=== PATIENT | female | born 1950 | race Caucasian/White ===

== ENCOUNTER 2019-12-16 17:50 | Emergency (ER) | payer MEDICARE, OTHER, SELFPAY ==
[2019-12-16 17:58] VITALS: BP 125/65; PULSE 70; RESP 16; TEMP 36.2; O2SAT 98; BMI 35.5
[2019-12-16 18:32] LABS: Add Manual Diff / Slide Review NO; Basophils Absolute Auto 100 /uL (0-100); Basophils Percent Auto 0.9 % (0-2); Eosinophils Absolute Auto 100 /uL (0-450); Eosinophils Percent Auto 1.2 % (2-4); Hematocrit 38.4 % (36-46); Hemoglobin 12.9 g/dL (12.0-16.0); Lymphocytes Absolute Auto 2800 /uL (1100-4500); Lymphocytes Percent Auto 33.6 % (25-40); Mean Corpuscular HGB Conc 33.7 % (30-36); Mean Corpuscular Volume 92.1 fL (80-100); Monocytes Absolute Auto 600 /uL (0-900); Monocytes Percent Auto 6.7 % (3-14); Neutrophils Absolute Auto 4700 /uL (1500-7000); Neutrophils Percent Auto 57.6 % (50-75); Platelet Count 235 X10^3/uL (150-400); Red Blood Cell Count 4.17 X10^6/uL (4.0-5.2); Red Cell Distribution Width 13.6 % (11.6-14.8); White Blood Cell Count 8.2 X10^3/uL (4.5-11.0)
[2019-12-16 18:37] LABS: INR 1.1 (0.9-1.3); Prothrombin Time 12.1 SECONDS (10.1-12.7)
[2019-12-16 18:40] LABS: PTT Partial Thromboplastin Tim 32 SECONDS (26.4-36.2)
[2019-12-16 18:42] LABS: D Dimer 267 ng/mL (<230)
[2019-12-16 18:44] LABS: BUN Creatinine Ratio 25.7 (6-22); Blood Urea Nitrogen 18 mg/dL (7-17); Calcium 9.3 mg/dL (8.4-10.2); Carbon Dioxide 30 mmol/L (22-32); Chloride 105 mmol/L (98-107); Estimated Glomerular Filt Rate > 60.0 mL/min (>60); Glucose 101 mg/dL (80-110); HEMOLYSIS < 15 (0-50); Potassium 3.6 mmol/L (3.4-5.1); Sodium 140 mmol/L (137-145)
--- NOTE | 2019-12-16 18:50 | ED.EXTPRO ---
HPI - Extremity Problem General Chief complaint: Extremity Problem,Nontraumatic Stated complaint: concerned of possible blood clot in legs Time Seen by Provider: 12/16/19 18:48 Source: patient Mode of arrival: Wheelchair Limitations: no limitations History of Present Illness HPI Narrative: Patient is a 69-year-old female here for evaluation of concerns of a DVT in her right lower extremity. She recently had right knee surgery for a meniscus injury. She stated that since her surgery she has had increasing pain and swelling around her right knee. She also states that the redness has been moving down her knee. She has had a DVT in the past. Has had a PE in the past. Is not currently on anticoagulation however she did have Xarelto left over from her prior issues. She was started on this today by an outside provider. [place] were unable to do this. She was sent to the emergency department to have an ultrasound for potential for DVT. Related Data Home Medications Medication Instructions Recorded Confirmed [ADVIL] #0 03/29/10 Allergies Allergy/AdvReac Type Severity Reaction Status Date / Time Sulfa (Sulfonamide Allergy Verified 12/16/19 17:58 Antibiotics) Review of Systems Constitutional Constitutional: Denies fever(s) and Denies headache(s) ENT Ears, Nose, Mouth, and Throat: Denies headache(s) and Denies disequilibrium Cardiovascular Cardiovascular: Denies chest pain and Denies dyspnea Respiratory Respiratory: Denies dyspnea Gastrointestinal Gastrointestinal: Denies abdominal pain, Denies nausea and Denies vomiting Genitourinary Genitourinary: Denies dysuria Musculoskeletal Comments: Right knee pain Integumentary/Breasts Comments: Swelling and ecchymosis around the right knee Neurologic Neurologic: Denies headache(s) and Denies disequilibrium Hematologic/Lymphatic Comments: Has had a DVT in the past Patient History Medical History DVT (deep venous thrombosis) (Acute) Social History Smoking Status: Unknown if ever smoked Smoking Status: Unknown if ever smoked alcohol intake frequency: holidays/special occasions only Substance Use Type: marijuana Exam Initial Vital Signs Initial Vital Signs: Vital Signs Temperature 97.2 F L 12/16/19 17:58 Pulse Rate 70 12/16/19 17:58 Respiratory Rate 16 12/16/19 17:58 Blood Pressure 125/65 12/16/19 17:58 Pulse Oximetry 98 12/16/19 17:58 Const General: cooperative and comfortable Limitations: mental status not altered Resp Effort & Inspection: normal respiratory effort Cardio Rate: regular rate Skin Other: Surgical scars right knee consistent with stated history, ecchymosis around right knee consistent with stated history. Neuro General: alert and awake Cognition: normal cognition Speech: speech normal Extrem Other: Swelling around the right knee consistent with stated history Psych Appearance: grossly normal and well kempt Scores GCS Elsa coma scale eye opening: Spontaneous [place] coma scale verbal response: Orientated Elsa coma scale motor response: Obey commands [place] coma scale total score: 15 Wells' Criteria for DVT Active Cancer (Treatment within 6 months): No Bedridden recently >3 days or major surgery within 4 weeks: Yes Calf Swelling >3cm compared to other leg: No Collateral (nonvericose) superficial veins present: No Entire leg swollen: No Localized tenderness along the deep vein system: No Pitting edema, confined to symtomatic leg: No Paralysis, paresis, or recent plaster immobilization of ext: No Previously documented DVT: Yes Alternative dx to DVT as likely or more likely: Yes Wells' criteria for DVT: 0 Course Orders Ordered: ED Orders 12/16/19 18:19 Basic Metabolic Panel Stat Complete Blood Count AUTO DIFF Stat D Dimer Stat Partial Thromboplastin Time Stat Prothrombin Time INR Stat 12/16/19 19:00 US periph venous low extrem rt Stat Vital Signs Vital signs: Vital Signs - 8 hr 12/16/19 17:58 12/16/19 19:30 12/16/19 19:54 Temperature 97.2 F L Pulse Rate 70 53 L Pulse Rate [Right Dorsalis Pedis] 60 Respiratory Rate 16 Blood Pressure 125/65 Blood Pressure [Left Arm] 122/62 Pulse Oximetry 98 97 MDM - Extremity (Nontraumatic) Lab Data Result diagrams: 12/16/19 18:19 12/16/19 18:19 Labs: Lab Results 12/16/19 12/16/19 12/16/19 Range/Units 18:19 18:19 18:19 WBC 8.2 (4.5-11.0) X10^3/uL RBC 4.17 (4.0-5.2) X10^6/uL Hgb 12.9 (12.0-16.0) g/dL Hct 38.4 (36-46) % MCV 92.1 (80-100) fL MCH 31.0 (26-34) PG MCHC 33.7 (30-36) % RDW 13.6 (11.6-14.8) % Plt Count 235 (150-400) X10^3/uL Neut % (Auto) 57.6 (50-75) % Lymph % (Auto) 33.6 (25-40) % [place] % (Auto) 6.7 (3-14) % Eos % (Auto) 1.2 L (2-4) % Baso % (Auto) 0.9 (0-2) % Neut # (Auto) 4700 (4445-7086) /uL Lymph # (Auto) 2800 (2033-6323) /uL [place] # (Auto) 600 (0-900) /uL Eos # (Auto) 100 (0-450) /uL Baso # (Auto) 100 (0-100) /uL PT 12.1 (10.1-12.7) SECONDS INR 1.1 (0.9-1.3) APTT 32 (26.4-36.2) SECONDS D-Dimer 267 H (<230) ng/mL Sodium 140 (137-145) mmol/L Potassium 3.6 (3.4-5.1) mmol/L Chloride 105 (98-107) mmol/L Carbon Dioxide 30 (22-32) mmol/L BUN 18 H (7-17) mg/dL Creatinine 0.70 (0.52-1.04) mg/dL Estimated GFR > 60.0 (>60) mL/min BUN/Creatinine Ratio 25.7 H (6-22) Glucose 101 (80-110) mg/dL Calcium 9.3 (8.4-10.2) mg/dL Imaging Data US - DVT: Radiologist's Impression: [address] [address] Ultrasound Report Signed Patient: Sunshine Khan#: [id number] : 2Acct:[id number] Age/Sex: 69 / FDate of Service: 12/16/19 Loc: ED Accession Number: [id number] Procedure: US periph venous low extrem rt Ordering Provider: Gagandeep Alcantara D.O. PROCEDURE: US PERIP VENOUS LOW EXTREM RT INDICATIONS: RT LEG SWELLING TECHNIQUE: Real-time imaging, as well as color and pulse Doppler interrogation, were performed of the lower extremity deep veins from the inguinal ligament to the popliteal fossa. COMPARISON: None. FINDINGS: The common femoral, femoral and popliteal veins are normally compressible, and free of intraluminal thrombus. Color and pulse Doppler demonstrate normal phasic intraluminal flow. There is normal augmentation response to distal compression maneuver. IMPRESSION: No DVT in the right lower extremity. Dictated by: Rohit Hartman M.D. on 12/16/2019 at 20:30 Approved by: Rohit Hartman M.D. on 12/16/2019 at 20:30 [facility] Narrative Medical decision making narrative: Patient did have a recent surgery to the right knee and has had a DVT in the past however I feel given her history and physical exam that a DVT is unlikely. I feel that the swelling and the redness in the pain that she is having is appropriate for her recent surgery. She has no chest pain or shortness of breath. Has a low risk Wells score and a negative D-dimer. I informed the patient that given these findings and her physical exam that I feel that an ultrasound is not needed in the emergency department. I told her that it is unlikely given the scoring systems that she has a DVT. I informed her that I did not feel that an ultrasound was needed in the emergency department however she states that she was sent here for an ultrasound and would like to have one performed. An ultrasound was performed per her request which shows no DVT. Patient was given return precautions and follow-up instructions. Discharge Plan Departure Patient Disposition: Home Clinical Impression: Post-operative pain Discharge Date/Time: 12/16/19 20:27 Activity Restrictions/Additional Instructions: Follow all of your postoperative instructions given to you by your operative surgeon. Be sure to call him for a follow-up. Return to the emergency department for any new or worsening symptoms Prescriptions: No Action [ADVIL] Qty: 0 RF: 0
--- NOTE | 2019-12-16 19:00 | DI.US.S_ITS ---
PROCEDURE: US PERIPH VENOUS LOW EXTREM RT INDICATIONS: RT LEG SWELLING TECHNIQUE: Real-time imaging, as well as color and pulse Doppler interrogation, were performed of the lower extremity deep veins from the inguinal ligament to the popliteal fossa. COMPARISON: None. FINDINGS: The common femoral, femoral and popliteal veins are normally compressible, and free of intraluminal thrombus. Color and pulse Doppler demonstrate normal phasic intraluminal flow. There is normal augmentation response to distal compression maneuver. IMPRESSION: No DVT in the right lower extremity. Dictated by: Rohit Hartman M.D. on 12/16/2019 at 20:30 Approved by: Rohit Hartman M.D. on 12/16/2019 at 20:30
[2019-12-16 19:30] VITALS: BP 122/62; PULSE 53; O2SAT 97
[2019-12-16 19:54] VITALS: PULSE 60
== END 2019-12-16 20:27 | disposition home or self-care (01) ==
PROVIDERS: Emergency Provider Emergency Medicine
DX: G89.18 Other acute postprocedural pain (principal); M25.561 Pain in right knee; R60.0 Localized edema
CPT/HCPCS: 36415; 80048; 85025; 85379; 85610; 85730; 93971; 99283; 99284